=== PATIENT | female | born 1985 | race Caucasian/White ===

== ENCOUNTER 2017-08-13 14:14 | Outpatient (CLI) | payer BC ==
--- NOTE | 2017-08-13 16:30 | ULT ---
PELVIC ULTRASOUND WITH OLMOS SCALE AND DOPPLER COLOR FLOW IMAGING TRANSABDOMINAL AND TRANSVAGINAL PELVIC ULTRASOUND PERFORMED: CLINICAL HISTORY: Anemia, pelvic pain. FINDINGS: Nonspecific mild free pelvic fluid is present. By transvaginal imaging, the endometrium measures 6 m m in thickness. Physiologic-appearing cysts are seen within each ovary, more notable on the right. The urinary bladder is mildly distended. Doppler assessment reveals flow to each ovary. IMPRESSION: 1. Mild free pelvic fluid is nonspecific, correlate clinically. 2. Physiologic-appearing ovarian cysts. POS: [facility]
== END 2017-08-13 14:15 | disposition home or self-care (01) ==
LOC: ULT 14:14
PROVIDERS: ATTEND Family Medicine
DX: R10.84 Generalized abdominal pain (principal); D64.9 Anemia, unspecified; N83.201 Unspecified ovarian cyst, right side; N83.202 Unspecified ovarian cyst, left side
CPT/HCPCS: 76856